=== PATIENT | male | born 1970 | race Caucasian/White ===

== ENCOUNTER 2020-04-25 09:55 | Emergency (ER) | payer SELFPAY ==
[~2020-04-25] VITALS: Ht 180.3 cm; Wt 95.2 kg
[2020-04-25] MEDS ORDERED: CYCL10 PO (12:34)
[2020-04-25] MEDS ORDERED: Norco 5-325 Ta1 EACH PO (12:34)
[2020-04-25] MEDS ORDERED: IBUP600 PO (12:34)
== END 2020-04-25 12:45 | disposition home or self-care (01) ==
LOC: ER 09:55
DX: S16.1XXA Strain of muscle, fascia and tendon at neck level, initial encounter (principal); F17.200 Nicotine dependence, unspecified, uncomplicated; V43.62XA Car passenger injured in collision with other type car in traffic accident, initial encounter; Y92.410 Unspecified street and highway as the place of occurrence of the external cause
CPT/HCPCS: 72040; 96372; 99284-25; A9270-GY; J1885